=== PATIENT | male | born 1960 | race Caucasian/White ===

== ENCOUNTER 2020-11-22 07:57 | Day surgery (SDC) | payer MEDICARE ==
[2020-11-18 09:34] VITALS: BMI 27.3
[~2020-11-22 07:57] MED LIST: ACETAMINOPHEN TAB 500 MG TAB PO PRN; CLINDAMYCIN 900 MG in DEXTROSE 5% IN WATER 50 ML IVPB PRN; HEPARIN SODIUM,PORCINE/PF 5,000 UNIT/0.5 ML SYRINGE SQ PRN
[2020-11-22] MEDS ORDERED: ONDANSETRON 4 MG/2 ML VIAL ONE (08:26)
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
[2020-11-22] MEDS ORDERED: LACTATED RINGERS 1,000 ML IV ONE ×2 (08:55)
[2020-11-22 09:00] LABS: Basophils % (A) 1 %; Eosinophils # (A) 0.5 k/uL (0-0.7); Eosinophils % (A) 9 %; HCT 35.5 % (39.0-53.0); HGB 11.9 gm/dL (13.0-17.5); Lymphocytes # (A) 0.9 k/uL (1.0-4.8); Lymphocytes % (A) 16 %; MCH 34.3 pg (25.0-35.0); MCHC 33.6 g/dL (31.0-37.0); Macrocytosis Slight; Mean Platelet Volume 6.6; Monocytes # (A) 0.4 k/uL (0-1.0); Monocytes % (A) 7 %; Neutrophils # (A) 3.7 k/uL (1.3-7.7); Neutrophils % (A) 64 %; Platelet Count 301 k/uL (150-450); RBC 3.48 m/uL (4.30-5.90); RDW 14.9 % (11.5-15.5); WBC 5.8 k/uL (3.8-10.6)
[2020-11-22] MEDS ORDERED: SCOPOLAMINE 1.5MG/72HR PATCH TRANSDERM ONE (09:02)
[2020-11-22] MEDS ORDERED: DEXAMETHASONE SOD PHOSPHATE 4 MG/ML 1 ML VIAL IVP ONE (09:02)
[2020-11-22] MEDS ORDERED: ONDANSETRON 4 MG/2 ML VIAL IVP ONE (09:02)
[2020-11-22] MEDS ORDERED: MIDAZOLAM 2 MG/2 ML VIAL IVP ONE (09:08)
[2020-11-22] MEDS ORDERED: KETAMINE 10 MG/ML 20 ML VIAL ONE (09:17)
[2020-11-22] MEDS ORDERED: NEOSTIGMINE 1 MG/ML 10 ML VIAL ONE (09:17)
[2020-11-22] MEDS ORDERED: GLYCOPYRROLATE 0.2 MG/ML 2 ML VIAL ONE (09:17)
[2020-11-22] MEDS ORDERED: ROCURONIUM 10 MG/ML (5 ML VIAL) IV ONE (09:17)
[2020-11-22] MEDS ORDERED: fentaNYL (PF) 50 MCG/ML 2 ML AMP ONE (09:17)
[2020-11-22] MEDS ORDERED: PROPOFOL 10 MG/ML 20 ML VIAL IV ONE (09:17)
[2020-11-22] MEDS ORDERED: LIDOCAINE 1% INJ 10MG/ML (20 ML MDV) ONE (09:17)
[2020-11-22] MEDS ORDERED: KETOROLAC 15 MG/ML 1 ML VIAL ONE (09:17)
[2020-11-22] MEDS ORDERED: BUPIVACAINE (PF) 0.5% 30 ML VIAL SQ ONE (09:36)
--- NOTE | 2020-11-22 09:36 | P.ANPRN ---
Procedure Note - Anesthesia - Nerve Block Performed Bilateral Erector Spinae Single Time Out Performed: Yes Date of Procedure: 11/22/20 Procedure Start Time: :05 Procedure Stop Time: :15 Location of Patient: PreOp Indication: Acute Post-Operative Pain, Requested by Surgeon Sedation Type: Sedate with meaningful contact maintained Preparation: Sterile Prep, Sterile Dressing Position: Prone Catheter: None Needle Types: Facet Needle Gauge: 20 Ultrasound used to visualize needle placement: Yes Ultrasound used to observe medication spread: Yes Injectate: Other (see comment) (Ropivacaine 0.375% 20 ml + decadron 4 mg per side) Blood Aspirated: No Pain Paresthesia on Injection Noted: No Resistance on Injection: Normal Image Stored and Saved: Yes Events: Uneventful and Well Tolerated
[2020-11-22 10:19] VITALS: TEMP 98.7
--- NOTE | 2020-11-22 10:20 | P.OP ---
Date of Procedure: 11/22/20 Preoperative Diagnosis: Left inguinal hernia Postoperative Diagnosis: Left inguinal hernia Procedure(s) Performed: Laparoscopic robotic-assisted repair of left inguinal hernia Excision of left cord lipoma Anesthesia: YOKASTA Surgeon: Aris Boston Estimated Blood Loss (ml): 5 Pathology: other (Left cord lipoma) Condition: stable Disposition: PACU Description of Procedure: TThe patient's placed on the operating table in the supine position. The patient received general anesthesia. The patient's abdomen was prepped and draped in usual sterile fashion. The skin was anesthetized 1% local Xylocaine at the incision sites. Using an 11 blade a skin incision was made at the umbilicus. The fascia was grasped with a Alvarado and then the peritoneal cavity was entered with the Veress needle. Position of the Veress needle was confirmed with a positive drop test. After adequate insufflation a 5 mm trocar was placed into the peritoneal cavity. The Laparoscope was placed the peritoneal cavity. And a robotic 8 mm trocar was placed in the right lateral position and then another 8 mm robotic trochars placed in the left lateral position. The original 5 mm trocar was exchanged for a 12 mm trocar. The patient was placed in reverse Trendelenburg and then the patient was docked to the robot. Next the peritoneum over top of the hernia was incised and then using blunt and sharp dissection and electrocautery the hernia sac was dissected free from the floor of the inguinal canal. The hernia sac was completely reduced into the peritoneal cavity. The cord lipoma was dissected free into the pathology And then using the [employer] mesh the hernia was repaired. The peritoneum was then sutured with 20V lock suture. The patient was then undocked the robot. The needle was withdrawn from the peritoneal cavity. The umbilical trocar site was closed with 0 Ethibond suture. The skin was closed interrupted 3-0 Monocryl suture. Dermabond dressing was applied. Patient was sent to recovery in stable condition.
[2020-11-22 10:48] VITALS: RESP 16
[2020-11-22 11:49] VITALS: BP 126/84; PULSE 84
== END 2020-11-22 12:16 | disposition home or self-care (01) ==
LOC: OR 07:57
PROVIDERS: ATTEND Surgery
DX: D17.6 Benign lipomatous neoplasm of spermatic cord (principal); E78.5 Hyperlipidemia, unspecified; F17.200 Nicotine dependence, unspecified, uncomplicated; I25.10 Atherosclerotic heart disease of native coronary artery without angina pectoris; I25.2 Old myocardial infarction; J45.909 Unspecified asthma, uncomplicated; K21.9 Gastro-esophageal reflux disease without esophagitis; M19.90 Unspecified osteoarthritis, unspecified site; Z79.82 Long term (current) use of aspirin; Z88.0 Allergy status to penicillin; Z95.5 Presence of coronary angioplasty implant and graft
CPT/HCPCS: 49650; S2900; 85025; 88304

== ENCOUNTER 2020-12-05 06:17 | Day surgery (SDC) | payer MEDICARE ==
[2020-12-02 10:44] VITALS: BMI 27.3
[~2020-12-05 06:17] MED LIST changes: -CLINDAMYCIN 900 MG in DEXTROSE 5% IN WATER 50 ML IVPB PRN; +DEXAMETHASONE SOD PHOSPHATE 4 MG/ML 1 ML VIAL IV ONE; +HYDROmorphone 0.5 MG/0.5 ML SYRINGE IVP PRN; +LACTATED RINGERS 1,000 ML IV SCH; +LIDOCAINE 1% (10MG/ML) FOR IV START INTRADERMA PRN; +MIDAZOLAM 2 MG/2 ML VIAL IV PRN; +ONDANSETRON 4 MG/2 ML VIAL IVP ONE; +Pre Op ABX Message 1 EACH MISC MISCELLANE ONE
[2020-12-05 07:00] VITALS: RESP 16
[2020-12-05] MEDS ORDERED: MIDAZOLAM 2 MG/2 ML VIAL ONE (07:38)
[2020-12-05] MEDS ORDERED: fentaNYL (PF) 50 MCG/ML 2 ML AMP ONE (07:38)
[2020-12-05] MEDS ORDERED: PROPOFOL 10 MG/ML 20 ML VIAL IV ONE (07:38)
[2020-12-05] MEDS ORDERED: LIDOCAINE 1% INJ 10MG/ML (20 ML MDV) ONE (07:38)
[2020-12-05] MEDS ORDERED: BUPIVACAINE (PF) 0.5% 30 ML VIAL SQ ONE ×2 (08:04→08:08)
[2020-12-05 08:40] VITALS: TEMP 96.9
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
--- NOTE | 2020-12-05 08:42 | P.OP ---
Date of Procedure: 12/05/20 Preoperative Diagnosis: Genital condyloma Postoperative Diagnosis: Genital condyloma Procedure(s) Performed: Excision of condyloma Anesthesia: YOKASTA Surgeon: Aris Boston Estimated Blood Loss (ml): 5 Pathology: other (Genital condyloma) Condition: stable Disposition: PACU Description of Procedure: The patient's placed on the operative table in supine position. He received general endotracheal tube anesthesia. His groin was prepped and draped usual fashion. Patient had a large collection of condyloma at the base of his penis. There is also one in the left of the penis shaft. The left cautery the condyloma was excised. The skin defect was closed using 3-0 Vicryl suture. Patient top she will well and was sent to recovery room in stable condition. Sterile dressings was applied.
[2020-12-05 10:02] VITALS: BP 133/75; PULSE 71
--- NOTE | 2020-12-12 08:37 | CDI ---
Adriana Hertel [address] [place] [address] Date: December 09, 2020 From: Katie Reaves Phone: Admit Date: 12/05/2020 06:17:00 AM Patient Name: Denny Salas Visit Number: [id number] Discharge Date: Payor: MEDICARE Dr. Aris Boston Dear Dr. Boston, Please provide the size of the genital condyloma excised. Thank you IDRIS Cuello, [facility] Outpatient Body Repairer --------- 7 x 5 x 1 cm MTDD
[2020-12-14] MEDS ORDERED: HYDROmorphone 0.5 MG/0.5 ML SYRINGE IVP ONE (08:43)
== END 2020-12-05 10:16 | disposition home or self-care (01) ==
LOC: OR 06:17
PROVIDERS: ATTEND Surgery
DX: A63.0 Anogenital (venereal) warts (principal); I25.10 Atherosclerotic heart disease of native coronary artery without angina pectoris; J45.909 Unspecified asthma, uncomplicated; I25.2 Old myocardial infarction; K21.9 Gastro-esophageal reflux disease without esophagitis; E78.5 Hyperlipidemia, unspecified; M19.90 Unspecified osteoarthritis, unspecified site; F17.210 Nicotine dependence, cigarettes, uncomplicated; Z79.82 Long term (current) use of aspirin; Z79.899 Other long term (current) drug therapy; Z88.0 Allergy status to penicillin
CPT/HCPCS: 88305; 11426; J2250; J1100; J2405; J2001; J3010; J2704; J1644